=== PATIENT | female | born 1955 | race Caucasian/White ===

== ENCOUNTER → 2020-12-08 09:19 | Outpatient (BNVA) | payer OTHER, SELFPAY | PROVIDERS: PCP Family Medicine; Referring Provider Family Medicine; Visit Provider Physician Assistant | DX: K21.9 Gastro-esophageal reflux disease without esophagitis (principal); K63.5 Polyp of colon; R10.13 Epigastric pain | CPT/HCPCS: 99202 ==

== ENCOUNTER 2020-12-29 12:27 | Outpatient (REF) | payer OTHER, SELFPAY ==
--- NOTE | ~2020-12-29 | XR_ITS ---
EXAMINATION: XR LUMBOSACRAL SPINE WITH OBLIQUES CLINICAL INFORMATION: Pain in right leg COMPARISON: None TECHNIQUE: AP, both oblique, and lateral views of the lumbar spine. Lateral view of the lumbosacral junction. FINDINGS: No acute fracture or traumatic malalignment. Vertebral body heights maintained. S1 is partially lumbarized with rudimentary disc at S1 to. Minimal dextro convex lumbar curvature centered at L2. Endplate osteophytes present throughout the lumbar spine. Mild facet arthropathy throughout lumbar spine, most pronounced at L5-S1. Mild bilateral sacroiliac arthrosis. Paraspinal soft tissues unremarkable. XR/XR lumbar spine 4V min IMPRESSION: No acute findings. Lumbar spondylosis as described.
--- NOTE | ~2020-12-29 | XR_ITS ---
EXAMINATION: XR HIP, RIGHT CLINICAL INFORMATION: Pain COMPARISON: None TECHNIQUE: Two views of the right hip. FINDINGS: No acute fracture or dislocation. Small acetabular osteophytes. Mild hip joint space narrowing. Femoral head is spherical. Mild degenerative change of the right sacroiliac joint and symphysis pubis. Soft tissues unremarkable. XR/XR hip RT min 2V IMPRESSION: No acute findings. Mild right hip arthrosis as described.
== END 2020-12-29 12:28 | disposition home or self-care (01) ==
LOC: HO.XRAY 12:27
PROVIDERS: PCP Family Medicine; Visit Provider Family Medicine
DX: M79.604 Pain in right leg (principal)
CPT/HCPCS: 72110; 73502

== ENCOUNTER 2021-03-08 09:03 | Outpatient (REF) | payer OTHER, SELFPAY ==
--- NOTE | 2021-03-08 09:07 | EMG_ITS ---
This is a 65-year-old woman with a 6 month history of numbness in the right foot and some pain in the left foot. PHYSICAL EXAMINATION: On examination, she is alert and oriented with normal intellectual functions. Cranial nerves II through XII were normal. She has somewhat flat feet. Reflexes symmetrical. IMPRESSION: Rule out peripheral neuropathy. Nerve conduction EMG study: Mildly prolonged distal latencies in the tibial nerves, otherwise unremarkable study of lower extremities. Normal EMG of the right L4-S1 innervated muscles. MD LIDYA Samaniego/IVY / [id number]
== END 2021-03-08 09:04 | disposition home or self-care (01) ==
LOC: HO.NEURO 09:03
PROVIDERS: Visit Provider Family Medicine
DX: G62.9 Polyneuropathy, unspecified (principal)
CPT/HCPCS: 95885; 95912

== ENCOUNTER 2021-03-22 10:40 | Day surgery (SDC) | payer OTHER, SELFPAY ==
--- NOTE | 2021-03-21 09:46 | HO.ANESPROP2 ---
Documented by User: Ángela Carpenter NP 03/21/21 09:46 HPI - Anesthesia Eval Consult details Narrative: 65yo F for Upper Endoscopy and Colonoscopy FORMERLY [facility] Active Problems Active Problems: All Active Problems (Updated 03/03/21 @ 08:28 by Tyesha Fraga RN) Epigastric pain (Acute) Acid reflux (Acute) Colon polyps (Acute) Past Medical History Medical History (Updated 03/03/21 @ 08:28 by Tyesha Fraga RN) Acid reflux Colon polyps COVID-19 vaccine series completed Elevated cholesterol Hypothyroid Family History Family History Sister Breast cancer Mother Diabetes Sister Diabetes Surgical History Surgical History (Updated 03/03/21 @ 08:28 by Tyesha Fraga RN) History of esophagogastroduodenoscopy (EGD) Hx of colonoscopy Social History Social History (Updated 12/08/20 @ 09:57 by Jaky Calles PA-C) Household Members Other:: lives with son Alcohol intake: never Patient Tobacco Use Status: Never used Tobacco Use of substances other than those prescribed or required for medical reasons: No Have you been hit, kicked, punched, or otherwise hurt by someone within the past year? 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 Meds Allergies Allergy/AdvReac Type Severity Reaction Status Date / Time peanut Allergy Unknown Unknown Verified 03/03/21 08:26 shellfish derived Allergy Unknown Unknown Verified 03/03/21 08:26 Home Medications Medication Instructions Recorded Confirmed Last Taken Type amitriptyline 25 mg tablet 25 mg PO BEDTIME 12/08/20 03/03/21 Unknown History atorvastatin 40 mg tablet 40 mg PO DAILY 12/08/20 03/03/21 Unknown History famotidine 40 mg tablet 40 mg PO BEDTIME 12/08/20 03/03/21 Unknown History levothyroxine 112 mcg tablet 112 mcg PO DAILY 12/08/20 03/03/21 03/22/21 History sucralfate 1 gram tablet 1 g PO DAILY tab 12/08/20 12/08/20 Unknown History Exam Exam Date and Time: March 21, [id number] Assessment and Plan Assessment Anesthesia Assessment: Chart Reviewed Documented by User: Rosy Whitman MD 03/22/21 11:16 [facility]LY [facility] Past Medical History Medical History (Updated 03/03/21 @ 08:28 by Tyesha Fraga RN) Acid reflux Colon polyps COVID-19 vaccine series completed Elevated cholesterol Hypothyroid Family History Family History Sister Breast cancer Mother Diabetes Sister Diabetes Family history of problems with anesthesia: No Surgical History Surgical History (Updated 03/03/21 @ 08:28 by Tyesha Fraga RN) History of esophagogastroduodenoscopy (EGD) Hx of colonoscopy History of Problems with Anesthesia: No Social History Social History (Updated 12/08/20 @ 09:57 by Jaky Calles PA-C) Household Members Other:: lives with son Alcohol intake: never Patient Tobacco Use Status: Never used Tobacco Use of substances other than those prescribed or required for medical reasons: No Have you been hit, kicked, punched, or otherwise hurt by someone within the past year? 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 Meds Allergies Allergy/AdvReac Type Severity Reaction Status Date / Time peanut Allergy Unknown Unknown Verified 03/03/21 08:26 shellfish derived Allergy Unknown Unknown Verified 03/03/21 08:26 Home Medications Medication Instructions Recorded Confirmed Last Taken Type amitriptyline 25 mg tablet 25 mg PO BEDTIME 12/08/20 03/03/21 Unknown History atorvastatin 40 mg tablet 40 mg PO DAILY 12/08/20 03/03/21 Unknown History famotidine 40 mg tablet 40 mg PO BEDTIME 12/08/20 03/03/21 Unknown History levothyroxine 112 mcg tablet 112 mcg PO DAILY 12/08/20 03/03/21 03/22/21 History sucralfate 1 gram tablet 1 g PO DAILY tab 12/08/20 12/08/20 Unknown History Exam Airway Mallampati Class: II TM Dist: >3cm Neck ROM: Full Heart: rrr Lungs: cta Assessment and Plan Assessment Anesthesia Assessment: Anesthesia Plan Discussed and Chart Reviewed Final Anesthetic Review Family History of Problems with Anesthesia: No History of Problems with Anesthesia: No NPO: Yes ASA Class: II Final Preanesthetic Review: No Changes in Pt Med Stat, Meds/Allgs Chart Reviewed and Consent Obtained/Reviewed Patient Risk: Intermediate Procedure Risk: Intermediate Anesthetic Plan Anesthetic Plan: MAC: Disposition: Standard PACU
[2021-03-22 10:51] VITALS: BP 141/84; PULSE 83; RESP 8; TEMP 36.6; O2SAT 97; BMI 29.0
--- NOTE | 2021-03-22 11:08 | MHC.SHP ---
Pre-Procedural Eval Section A Date of Service: 03/22/21 Section B Chief Complaint: reflux,hx of polyps Relevant Family History (Specify if Yes): No Relevant Social History: None Present Medications: see Short Stay Collaborative assessment Medical History: Significant History (Acid reflux Colon polyps COVID-19 vaccine series completed Elevated cholesterol Hypothyroid) History of Previous Operations: Relevant previous surgery/procedure and date(s) (egd,colonoscopy) Allergies: Allergies Allergy/AdvReac Type Severity Reaction Status Date / Time peanut Allergy Unknown Unknown Verified 03/03/21 08:26 shellfish derived Allergy Unknown Unknown Verified 03/03/21 08:26 Review of Systems Sugical H&P ROS: Negative: Constitution, Cardiovascular, Respiratory, Neurological, Psychiatric, Hem-Onc, Allergic/Immunologic, Gastrointestinal, Genitourinary, Musculoskeletal, Integumentary, Endocrine and Eyes/Ears/Nose/Throat Exam Surgical H&P Exam: Normal: HEENT, Normal: Heart, Normal: Lungs, Normal: Extremities, Normal: Abdomen, Normal: Skin and Normal: Neurological Plan Diagnosis/Plan: Unchanged I have reviewed the history and physical and performed a pertinent physical examination on my patient. No changes have occurred unless specified.
[2021-03-22] MEDS: Lactated Ringers 1,000 ML 100 ML IVCONT (11:11)
--- NOTE | 2021-03-22 12:36 | PM.OP ---
Brief Operative Note Date of Service: 03/22/21 Pre-op diagnosis: GERd, screening Post-op diagnosis: same Procedure: see op note Surgeon: Sheron Cannon MD Anesthesia: MAC Was an Agency Development Manager used for this Procedure?: No Estimated blood loss (mL): 0 Condition: stable Disposition: PACU
--- NOTE | 2021-03-22 12:36 | W.PM.OPN ---
Operative Note Operative Note Date of Service: 03/22/21 Narrative: Operative Information Procedure Description: EGD, Colonoscopy FLEXIBLE TRANSORAL UPPER GASTROINTESTINAL ENDOSCOPY AND COLONOSCOPY PROCEDURE NOTE UPPER ENDOSCOPY Consent: Indications for the procedure and potential complications of bleeding, perforation, reaction to medications and missed diagnosis were discussed with the patient and informed consent was obtained. Instrument: Olympus GIF H 190 J mid size upper endoscope Monitoring: Vital signs and clinical assessment, continuous EKG monitoring, Pulse oximetry, Carbon Dioxide monitoring and blood pressure monitoring were done throughout the procedure. Procedure: The patient was placed in the left lateral decubitis position and pre-procedure medications were administered and a bite block was placed. The endoscope was inserted into the mouth and advanced under direct vision to the third part of duodenum. A careful inspection was made as the upper endoscope was withdrawn including a retroflexed examination of the proximal stomach; Findings and interventions are described below. Findings: Larynx:normal Esophagus: GE junction at 36 cm, diaphragm hiatus at 36 cm, bogginess and erythema at GEJ, bx taken Stomach: Patchy erythematous mucosa. Biopsies were obtained. Grade 2 flap valve on retroflexed examination of the cardia. Duodenum: Normal bulb and descending duodenum, bx taken Intervention: Biopsies as noted above COLONOSCOPY Instrument: Olympus variable stiffness pediatric scope 190L Colonoscopy Monitoring: Vital signs and clinical assessment, continuous EKG monitoring, Pulse oximetry, Carbon Dioxide monitoring and blood pressure monitoring were done throughout the procedure. Colon withdrawal time was 9 minutes. Procedure: The patient was placed in the left lateral decubitis position and pre-procedure medications were administered. After a digital rectal examination of the ano-rectum, the video colonoscope was inserted into the rectum and advanced through the colon to the cecum/TI. The colonoscope was slowly withdrawn in a retrograde panoramic fashion and the colon mucosa was carefully examined including a retroflexed view of the rectum. Findings and interventions are described below. Procedure Difficulty: easy Findings: Terminal Ileum-normal Cecum:normal Ascending Colon: normal, 10 mm lipoma noted Transverse Colon -normal Descending Colon:normal Sigmoid Colon: normal Rectum: Retroflexion with mdoerately large internal hemorrhoids, grade I, 8 mm sessile polyp removed with forceps Anorectum - normal Colon preparation: [place] Bowel Preparation Scale Right colon; 2 Transverse colon: 2 Left colon; 2 (0 = Unprepared colon segment with mucosa not seen due to solid stool that cannot be cleared. 1 = Portion of mucosa of the colon segment seen, but other areas of the colon segment not well seen due to staining, residual stool and/or opaque liquid. 2 = Minor amount of residual staining, small fragments of stool and/or opaque liquid, but mucosa of colon segment seen well. 3 = Entire mucosa of colon segment seen well with no residual staining, small fragments of stool or opaque liquid) Impression and Post Procedure Diagnosis: Endoscopy Findings: esophagitis gastritis Colonoscopy Findings: internal hemorrhoids polyp Plan: Await Pathology results Repeat Colonoscopy in 5 years if adenoma polyp, 10 yrs if hyperplastic or earlier if clinically indicated High fiber diet leaflet avoid straining at stool, epsom salts and sitz bath, anusol supps or cream consider changing PPI to another formulation Above findings were reviewed with the patient and relevant handouts were provided if indicated.
[2021-03-22 12:57] VITALS: BP 106/66; PULSE 84; RESP 16; TEMP 36.9; O2SAT 97
[2021-03-22 13:12] VITALS: BP 115/75; PULSE 75; RESP 18; TEMP 36.2; O2SAT 99
== END 2021-03-22 14:00 | disposition home or self-care (01) ==
PROVIDERS: PCP Family Medicine; Visit Provider Internal Medicine Gastroenterology
PROC: (CPT 45380; principal; 2021-03-22 12:10)
DX: Z12.11 Encounter for screening for malignant neoplasm of colon (principal); Z86.010 Personal history of colon polyps; K62.1 Rectal polyp; D17.5 Benign lipomatous neoplasm of intra-abdominal organs; K64.0 First degree hemorrhoids; K29.00 Acute gastritis without bleeding; K21.00 Gastro-esophageal reflux disease with esophagitis, without bleeding; Q39.8 Other congenital malformations of esophagus; K44.9 Diaphragmatic hernia without obstruction or gangrene; E78.00 Pure hypercholesterolemia, unspecified; Z79.899 Other long term (current) drug therapy
CPT/HCPCS: 45380; 43239; 88305; 88342

== ENCOUNTER 2021-04-05 07:18 | Outpatient (REF) | payer OTHER, SELFPAY ==
[2021-04-05 08:56] LABS: MANUAL DIFF FLAG NO
[2021-04-05 10:15] LABS: Basophils Percent Auto 0.6 % (0-2); Eosinophils Absolute Auto 0.1 X10*3/uL (0.0-0.4); Eosinophils Percent Auto 1.6 % (0-4); Hematocrit 46.6 % (37.0-47.0); Imm Gran Abs Auto 0.01 X10*3/uL (0.00-0.03); Imm Gran Pct Auto 0.1 % (0.0-0.4); Lymphocytes Absolute Auto 3.1 X10*3/uL (1.2-4.9); Lymphocytes Percent Auto 43.7 % (20-40); Mean Corpuscular HGB Conc 32.2 g/dl (31.0-35.0); Mean Corpuscular Hemoglobin 27.3 pg (27.0-33.0); Mean Corpuscular Volume 84.7 fL (80.0-98.0); Mean Platelet Volume 10.1 fL (9.4-12.3); Monocytes Absolute Auto 0.5 X10*3/uL (0.1-1.2); Monocytes Percent Auto 6.6 % (2-11); Neutrophils Absolute Auto 3.3 x10*3/uL (2.0-8.3); Neutrophils Percent Auto 47.4 % (45-73); Platelet Count 313 X10*3/uL (160-400); Red Cell Distribution Width 13.6 % (11.0-16.0)
[2021-04-05 10:28] LABS: Alanine Aminotransferase 30 U/L (0-31); Albumin Level 4.6 g/dL (3.5-5.0); Alkaline Phosphatase 99 U/L (39-117); Anion Gap 11 (12-20); Aspartate Amino Transferase 23 U/L (5-31); Bilirubin Total 0.5 mg/dL (0.0-1.0); Blood Urea Nitrogen 11 mg/dL (9-16); Carbon Dioxide 29 mmol/L (22-29); Chloride 104 mmol/L (96-108); Cholesterol 216 mg/dL; Estimated Glomerular Filt Rate > 60; Glucose Random 87 mg/dL (60-115); HDL Cholesterol 61 mg/dL; LDL Cholesterol Calculated 126 mg/dl; Potassium 4.3 mmol/L (3.3-5.1); Sodium 140 mmol/L (135-145); Total Protein 8.5 g/dL (6.5-8.0); Triglycerides 147 mg/dL
[2021-04-06 13:07] LABS: H Pylori Breath Test Negative (Negative)
[2021-04-07 11:51] LABS: Transglutaminase IgA <1.0 U/mL
[2021-04-11 12:16] LABS: Endomysial IgA Antibody Negative (Negative)
== END 2021-04-05 07:19 | disposition home or self-care (01) ==
LOC: HO.LAB 07:18
PROVIDERS: PCP Internal Medicine; Referring Provider Internal Medicine; Visit Provider Physician Assistant
DX: R10.13 Epigastric pain (principal); K21.9 Gastro-esophageal reflux disease without esophagitis; K20.90 Esophagitis, unspecified without bleeding; K63.5 Polyp of colon; R19.7 Diarrhea, unspecified; K76.0 Fatty (change of) liver, not elsewhere classified; Z79.899 Other long term (current) drug therapy
CPT/HCPCS: 36415; 80053; 80061; 83013; 85025; 86231; 86364; 99202

== ENCOUNTER → 2021-07-27 11:18 | Outpatient (BNVA) | payer OTHER, SELFPAY | PROVIDERS: PCP Internal Medicine; Referring Provider Internal Medicine; Visit Provider Physician Assistant | DX: K21.9 Gastro-esophageal reflux disease without esophagitis (principal); R77.9 Abnormality of plasma protein, unspecified; Z79.899 Other long term (current) drug therapy | CPT/HCPCS: 99212 ==

== ENCOUNTER 2024-09-15 14:30 | Outpatient (AMB) | payer MEDICARE, OTHER, SELFPAY ==
--- NOTE | 2024-09-15 15:02 | A.OFFVIS_ITS ---
Vital Signs 09/15/24 15:03 Height 5 ft 7 in Intake Visit Reasons: 6m Migraine Allergies peanut Allergy (Unknown, Verified 09/15/24 15:05) Unknown shellfish derived Allergy (Unknown, Verified 09/15/24 15:05) Unknown Medication List - Last Reconciled 09/15/24 by Dianne Robins CNP amitriptyline 25 mg PO BEDTIME atorvastatin 40 mg PO DAILY fluticasone propionate 50 mcg/actuation 2 sprays intranasal DAILY levothyroxine 112 mcg PO DAILY omeprazole 40 mg PO DAILY sumatriptan succinate take 1 tab at onset of headache; if no relief may repeat 1 tab after at least 2 hrs; max = 4 tabs/24 hr PO HPI Comments Details: 68-year-old woman with migraine. She was doing okay. Headaches were controlled with amitriptyline. She had few occasional headaches that she did not need to use sumatriptan for. Sleep was okay. Mood was okay. 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 Review of Systems Const Denies chills, Denies daytime sleepiness, Denies difficulty sleeping, Denies fatigue, Denies fever(s), Denies frequent falls, Reports headache(s), Denies increased appetite, Denies poor appetite, Denies snoring, Denies weakness, Denies weight gain and Denies weight loss Eyes Denies loss of vision ENT Denies vertigo, Denies dizziness and Reports headache(s) Card Denies chest pain at rest, Denies chest pain with activity, Denies syncope, Denies leg edema and Denies palpitations Resp Denies snoring GI Denies constipation, Denies heartburn, Denies diarrhea and Denies nausea Denies urinary frequency, Denies urinary incontinence and Denies urinary urgency Musc Denies abnormal gait, Denies numbness and Denies tingling Skin/Breast Denies dry skin and Denies rash Neuro Denies abnormal gait, Denies vertigo, Denies dizziness, Denies syncope, Denies frequent falls, Reports headache(s), Denies lack of coordination, Denies loss of vision, Denies memory loss, Denies numbness, Denies restless legs, Denies seizure-like activity, Denies tingling, Denies paresthesias, Denies tremor(s) and Denies weakness Psych Denies anxiety, Denies depression, Denies auditory hallucinations, Denies memory loss, Denies visual hallucinations and Denies suicidal ideation Endo Denies fatigue and Denies palpitations Physical Exam Const Other: General Appearance:? normal, in no acute distress. Skin:? no rashes, no significant birthmarks. Heart:? S1, S2 normal, no murmurs. Lungs:? clear anteriorly and posteriorly. Extremities:? no edema. Psych:? alert, oriented, cognitive function intact, cooperative with exam. Neuro Other: Mental Status:?Normal attention, orientation, memory and affect.? Cranial Nerves:?Pupils are equal, round and reactive to light. External occular muscles are intact. Visual white are full. Face is symmetrical. Facial sensations are normal. Tongue is midline. Palate elevates symmetrically. Shoulder shrugging is normal. Hearing to bedside conversation is normal. Motor Examination:?Normal muscle tone, bulk and strength,?Deep tendon reflexes are 2+,?Plantars are flexor.? Sensory Exam:?....? Coordination:?No ataxia,?no titubation.? Gait Exam: Within normal limits. Cerebellar Signs:?[id number] and [id number] is normal.? Extrapyramidal System:?No tremor, rigidity with normal facial expressions.? Pronator Drift:?Not present.? Involuntary Movements:?No tremors seen.? Speech:?Normal.? Assessment & Plan Assessment & Plan (1) Migraine: Code(s): G43.909 - Migraine, unspecified, not intractable, without status migrainosus Category: Medical Qualifiers: Migraine type: unspecified Status migrainosus presence: without status migrainosus Intractability: not intractable Qualified Code(s): G43.909 - Migraine, unspecified, not intractable, without status migrainosus Plan: Continue amitriptyline 25mg 1 tablet at bedtime Continue sumatriptan 50mg 1 tablet as needed for migraine Medications: New amitriptyline 25 mg PO BEDTIME 90 tabs 1RF 90 days sumatriptan succinate take 1 tab at onset of headache; if no relief may repeat 1 tab after at least 2 hrs; PO 10 tabs 5RF 30 days Discontinued sumatriptan succinate Discontinued Reason: Order take 1 tab at onset of headache; if no relief may repeat 1 tab after at least 2 hrs; max = 4 tabs/24 hr PO Coding Level of Care Code Est Pt Level 3 (15369) Diagnoses Migraine without status migrainosus, not intractable, unspecified migraine type G43.909 Migraine type: unspecified Status migrainosus presence: without status migrainosus Intractability: not intractable
--- OUTSIDE RECORDS SUMMARY | 2024-09-15 15:45 | XMS_ITS | Encounter Summary ---
Author Organization [employer] Address [address] [place] [address] Care Team Providers Care Branch Sales And Service Representative Name Role Phone Harrison Portillo MD Primary Care Prov ider Encounter Details Date Type Department Care Team (Latest Contact Info) Description 06/16/2018 Abstract [facility] CONVERSIONS Dental, Provider, DDS Social History Tobacco Use Types Packs/Day Years Used Date Smoking Tobacco: Never Assessed Comments Unknown Sex and Gender Information Value Date Recorded Sex Assigned at Female 12/25/2021 10:29 AM EDT Legal Sex Female 10:29 AM EDT Gender Identity Female 12/25/2021 10:29 AM EDT Sexual Orientation Choose not to disclose 2021 10:29 AM EDT documented as of this encounter Plan of Treatment Not on file documented as of this encounter Visit Diagnoses Not on filedocumented in this encounter Care Teams Branch Sales And Service Representative Relationship Specialty Start Date End Date Harrison Portillo MD [address] [place] [address] PCP - General Internal Medicine 07/17/19 12/19/23 documented as of this encounter
--- OUTSIDE RECORDS SUMMARY | 2024-09-15 15:45 | XMS_ITS | Clinical Summary ---
Author Organization [address] [place] [address] [place] [phone] Phone Care Team Providers Care Cellophane Tester Name Role Phone Meryl Baeza MD Primary Care Provider Allergies Active Allergy Reactions Criticality Noted Date Comments Other 07/08/2023 seasonal Peanut High 01/02/2010 Other Reaction(s): Numbness, tingling or swelling of the lips, tongue or mouth Dryness in throat Shellfish Containing Products High 01/02/2010 Other Reaction(s): Hives/Urticaria Sulfa (Sulfonamide Antibiotics) Medium 02/26/2021 Other Reaction(s): Hives/Urticaria Medications amitriptyline (ELAVIL) 25 mg tablet Take 1 Tablet by mouth at bedtime. 3 Active acetaminophen (TYLENOL) 500 mg tablet Take 1 tablet (500 mg total) by mouth every 6 (six) hours if needed. 2 Active fluticasone propionate (FLONASE) 50 mcg/actuation nasal spray SPRAY 2 SPRAYS BY NASAL ROUTE DAILY 48 mL 1 5 Active omeprazole (PriLOSEC) [address] capsule TAKE 1 CAPSULE BY MOUTH EVERY DAY 90 capsule 1 5 Active cholecalciferol (VITAMIN D-3) 25 mcg (1,000 unit) tablet Take 1 tablet (1,000 Units total) by mouth 1 (one) time each day. 90 tablet 3 5 Active loratadine (CLARITIN) 10 mg tablet Take 1 tablet (10 mg total) by mouth 1 (one) time each day. 90 tablet 3 5 Active levothyroxine (SYNTHROID, LEVOTHROID) 112 mcg tablet Take 1 tablet (112 mcg total) by mouth 1 (one) time each day. 90 each 5 12/03/19 25 Active levothyroxine (SYNTHROID, LEVOTHROID) 112 mcg tablet Take 1 tablet (112 mcg total) by mouth 1 (one) time each day. 90 each 5 09/04/19 Discontinu ed(Reorder ) Active Problems Problem Noted Date Diagnosed Date Gastroesophageal reflux disease without esophagi tis 10/09/2023 Hypothyroidism 01/25/2022 Assessment & Plan (05/07/2024 8:22 AM EDT): Orders: CBC and differential; Future Thyroid stimulating hormone with reflex to free t4 and free t3; Future Colon polyp 03/22/2021 Overview (12/13/2023): [place] [facility] Hyperlipidemia 08/04/2018 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 Seasonal allergies 08/04/2018 Varicose veins with pain 07/07/2018 Encounters Date Type Department Care Team Description 09/02/2024 10:30 AM EDT Office Visit Adult Medicine [address] [phone] Ml Diaz PA Hypothyroidism, unspecified type (Primary Dx); Gastroesophageal reflux disease without esophagitis; Varicose veins with pain 08/03/2024 Telephone Vascular Surgery [facility] [address] [facility] [address] [place] [address] Ana Maria Simmons MA 07/29/2024 10:00 AM EDT Office Visit Orthopedic Surgery [facility] [address] [facility] [address] [place] [address] Renny Cordon, ZE Chronic pain of left ankle (Primary Dx); Venous insufficiency; Sinus tarsi syndrome of left ankle; Disorder of ligament of ankle, left 07/29/2024 Telephone Adult Medicine [address] [place] [address] Meryl Baeza MD Referral (Neurology Insurance Referral) from Last 3 Months Immunizations Name Administration Dates Next Due Influenza Quadrivalent, 0.5m l, preservative free (Fluarix; FluLaval; Fluzone) ages 6mo and older (Afluria) 3yo and older 12/17/2023 Influenza trivalent, 0.5mL ( Fluad) 65yo and older 12/05/2022 Influenza trivalent, 0.5mL, preservative free (Fluarix; FluLaval; Fluzone) ages 6mo and older (Afluria) 3 years and older 12/29/2020,11/26/2019,11/27/2018,2017,12/04/2016,11/15/2015 Influenza, Unspecified 12/22/2021 Pneumococcal conjugate 20 va lent (Prevnar 20, PCV 20) 2mo and older 06/01/2022 Tdap Tetanus diptheria acell ular pertussis (Boostrix; Adacel) 7yo and older 02/03/2016 Zoster Live 12/04/2016 Zoster recombinant (Shingrix ) 19yo and older 02/03/2020,12/03/2019 Surgical History Surgery Date Site/Laterality Comments BREAST REDUCTION 05/2010 PROCEDURE: NE BREAST REDUCTION OTHER SURGICAL HISTORY 12/27/2016 Left PROCEDURE: NE STAB PHLEBT VARICOSE VEINS 1 XTR > 20 INCS SECTION PROCEDURE: HISTORICAL DELIVERY COLONOSCOPY 2021 PROCEDURE: HISTORICAL COLONOSCOPY; COMMENT: polyps FINE NEEDLE ASPIRATION 02/2021 Left PROCEDURE: FINE NDLE ASPRTN W/IMAGING GUIDANCE; COMMENT: neg Medical History Medical History Date Comments 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 DX:Left knee DJD Varicose veins with pain 07/07/2018 DX:Vari cose veins with pain Hyperlipidemia 08/04/2018 DX:Hyperlipidemi a Seasonal allergies 08/04/2018 DX:Seasonal a llergies GERD without esophagitis DX:GERD without esophagitis History of gastric ulcer DX:Hist ory of gastric ulcer Hypothyroid DX:Hypothyroid Hypothyroidism 01/25/2022 DX:Hypothyroidis m Family History Medical History Relation Name Comments Drug abuse Brother 1 Throat cancer Father + Etoh and smo ker Arthritis Mother Breast cancer Sister 1 x 10 Other: Childbirth Complications Sister 2 Other: Spinda Bifida Son 1 Jeremias No Known Problems Son 2 Colon cancer Neg Hx Diabetes Neg Hx Heart attack Neg Hx Ovarian cancer Neg Hx Stroke Neg Hx Relation Name Status Comments Brother 1 Brother 2 x 3 Alive Father Mother Alive Sister 1 x 10 Alive Sister 2 Son 1 Jeremias Alive Son 2 Alive Social History Tobacco Use Types Packs/Day Years Used Date Smoking Tobacco: Never Smokeless Tobacco: Never Tobacco Cessation:Counseling Given: Not Answered Alcohol Use Standard Drinks/Week Comments No 0 (1 standard drink = 0.6 oz pur e alcohol) Housing Instability Answer Date Recorde d Are you worried that in the next 2 months you may not have stable housing? No 05/07/2024 Food Access & Nutrition Answer Date Rec orded Do you have access to a vari ety of food including fruits and vegetables? Yes 05/07/2024 Health Literacy Answer Date Recorded How often do you need to hav e someone help you when you read instructions, pamphlets, or other written material from your doctor or pharmacy? Never 05/07/2024 Caregiver: How often do you need to have someone help you when you read instructions, pamphlets, or other written material from your doctor or pharmacy? Not on file 05/07/2024 Financial Risk Answer Date Recorded How hard is it for you to pa y for the very basics like food, housing, medical care, and air conditioning / heating? Not very hard 05/07/2024 Transportation Answer Date Recorded Has the lack of transportati on kept you from meetings, work, or from getting things needed for daily living? No Has the lack of transportati on kept you from medical appointments or from getting medications? No 05/07/2024 Social Isolation Answer Date Recorded How often do you feel lonely or isolated from th ose around you? Never 05/07/2024 Food Risk Answer Date Recorded Within the past 12 months we worried whether our food would run out before we got money to buy more. Never true 05/07/2024 Within the past 12 months th e food we bought just didn't last and we didn't have money to get more. Never true 05/07/2024 Dependent Care Answer Date Recorded Do you need help finding or paying for care for your loved ones. For example, child care centre director or elderly care for an older adult? Patient declined 05/07/2024 Education Answer Date Recorded Do you think completing more education or training, like finishing a GED, going to college, or learning a trade, would be helpful for you? Patient declined 05/07/2024 Employment and Income Answer Date Recor ded During the last four weeks, have you been actively looking for work? Patient declined 05/07/2024 Living Situation Answer Date Recorded What is your living situation? 0 05/07/2024 Comments No Sex and Gender Information Value Date Recorded Sex Assigned at Not on file Legal Sex Female 6:07 AM EST Gender Identity Not on file Sexual Orientation Not on file Obstetrics History Para Term AB IAB SAB Ectopic Multiple Livin g Live Births 2 2 2 2 Date Outcome GA Total Labor Labor/2nd/3rd Weight Sex Type Anes PTL Nelida A1 A5 Name Clin Term Term Last Filed Vital Signs Vital Sign Reading Time Taken Comments Blood Pressure 102/72 09/02/2024 10:14 AM EDT Pulse 72 09/02/2024 10:14 AM EDT Temperature 36.3 C (97.4 F) 09/02/2024 10:14 AM EDT Respiratory Rate 12 09/02/2024 10:14 AM EDT Oxygen Saturation - - Inhaled Oxygen Concentration - - Weight 83.3 kg (183 lb 9.6 oz) 09/02/2024 10:14 AM EDT Height 170.2 cm (5' 7 ) 09/02/2024 10:14 AM EDT Body Mass Index 28.76 09/02/2024 10:14 AM EDT Plan of Treatment Upcoming Encounters Date Type Department Care Team (Late st Contact Info) Description 10/29/2024 10:00 AM EDT Office Visit Orthopedic Surgery - [place] [address] [phone] Renny Cordon DPM [address] [address] 11/26/2024 11:30 AM EDT Procedure visit Vascular Surgery - [place] 300 [facility] [address] [place] [phone] Davey Perez MD 300 [facility] [address] [place] [address] 12/14/2024 1:00 PM EDT Office Visit Vascular Surgery - [place] 300 [facility] [address] [place] [address] Bernie Dukes PA 300 [facility] [address] [place] [address] 01/05/2025 8:45 AM EST Office Visit Adult Medicine [facility] [address] [place] [address] Meryl Baeza MD [address] [place] [address] Health Maintenance Due Date Last Done Comments Falls Risk Assessment 02/03/2022 Medicare Annual Wellness Visit 02/03/2022 COVID-19 Vaccine ( season) 2024 12/17/2023, 12/22/2021, 02/28/2021, Additional history exists Influenza Vaccine (#1) 2024 , 12/05/2022, 12/22/2021, Additional history exists Breast Cancer Screening 04/03/2025 04/03/19, 03/26/2023, 03/09/2022, Additional history exists Social Influencers of Health Screening 05/07/2025 05/07/2024 DTaP,Tdap,and Td Vaccines (2 - Td or Tdap) 02/02/2026 02/03/2016 Colorectal Cancer Screening: Colonoscopy 03/22/2026 03/22/2021, 03/22/2021 Osteoporosis Screening (Bone Density Screening) 05/13/2026 05/13/2024, 06/08/2022 Cholesterol Screening (Lipid Panel) 05/07/2029 05/07/2024, 07/03/2023, 07/03/2023 RSV Immunization Adult Patients (1 - 1-dose 75+ series) 10/13/2031 Hepatitis C Screening Completed 10/31/2007 Zoster Vaccines Completed 02/03/2020, 09/2019, 12/04/2016 Pneumococcal Vaccine: 50+ Years Completed 06/01/2022 Depression Screening Completed 05/07/2024, 04/08/19 24 HIB Vaccines Aged Out No longer eligi ble based on patient's age to complete this topic HPV Vaccines Aged Out No longer eligi ble based on patient's age to complete this topic Hepatitis A Vaccines Aged Out No long er eligible based on patient's age to complete this topic Hepatitis B Vaccines Aged Out No long er eligible based on patient's age to complete this topic IPV Vaccines Aged Out No longer eligi ble based on patient's age to complete this topic MMR Vaccines Aged Out No longer eligi ble based on patient's age to complete this topic Meningococcal ACWY Vaccine Aged Out N o longer eligible based on patient's age to complete this topic Meningococcal B Vaccine Aged Out No l onger eligible based on patient's age to complete this topic RSV Immunization Patients Under 20 months Aged Out No longer eligible based on patient's age to complete this topic Varicella Vaccines Aged Out No longer eligible based on patient's age to complete this topic Procedures Procedure Name Priority Date/Time Associated Diagnosis Comments TRIIODOTHYRONINE FREE Routine 09/02/2024 10:59 AM EDT Acquired hypothyroidism FREE THYROXINE WITH REFLEX TO FREE TRIIODOTHYRONINE Routine 09/02/2024 10:59 AM EDT Acquired hypothyroidism THYROID STIMULATING HORMONE WITH REFLEX TO FREE T4 AND FREE T3 Routine 09/02/2024 10:59 AM EDT Acquired hypothyroidism BD BONE DENSITY DXA AXIAL SKELETON Routine 05/13/2024 1:45 PM EDT Other specified disorders of bone density and structure, other site LIPID PANEL WITH REFLEX TO DIRECT LDL Routine 05/07/2024 8:29 AM EDT PE (physical exam), annual MG MAMMO DIGITAL SCREENING W ABDI BILAT Routine 04/03/2024 9:57 AM EST Encounter for screening mammogram for breast cancer DEPRESSION SCREENING Routine 04/08/2023 COLONOSCOPY Routine 03/22/2021 HEPATITIS C SCREENING Routine 10/31/2007 from Last 3 Months or Most Recently Relevant to Health Maintenance Results * (ABNORMAL) Thyroid stimulating hormone with reflex to free t4 and free t3 (09/02/2024 10:59 AM EDT) TSH 0.26(L) 0.40 - 4.00 mcIU/mL LAB CHEMISTRY METHOD 09/02/2024 3:[address] [facility] Blood Venous blood specimen / Unknown Venipuncture / Unknown 09/02/2024 10:59 AM EDT 09/02/2024 10:59 AM EDT us Meryl Baeza MD LAB BLOOD ORDERABLES Final Resul t Performing Organization Address City/[facility]/ZIP Co de Phone Number [facility] [address] [place] [address], [place] [phone] * Free thyroxine with reflex to free triiodothyronine (09/02/2024 10:59 AM EDT) Free T4 1.69 0.70 - 1.80 ng/dL LAB CHEMISTRY METHOD 09/02/2024 7:[address] [facility] Blood Venous blood specimen / Unknown Venipuncture / Unknown 09/02/2024 10:59 AM EDT 09/02/2024 10:59 AM EDT us Meryl Baeza MD LAB BLOOD ORDERABLES Final Resul t [facility] [address] [place] [address], [place] [phone] * Triiodothyronine free (09/02/2024 10:59 AM EDT) T3, Free 328 230 - 420 pcg/dL LAB CHEMISTRY METHOD 09/02/2024 9:[address] [facility] Blood Venous blood specimen / Unknown Venipuncture / Unknown 09/02/2024 10:59 AM EDT 09/02/2024 10:59 AM EDT us Meryl Baeza MD LAB BLOOD ORDERABLES Final Resul t [facility] [address] [place] [address], * BD Bone Density DXA Axial Skeleton (05/13/2024 1:45 PM EDT) Anatomical Region Laterality Modality Wrist, Hip, L-spine Bone Densito metry 05/13/2024 7:59 PM EDT Impressions 05/13/2024 8:01 PM EDT Osteopenia. The NOF guidelines recommend that FDA approved medical therapies be considered in postmenopausal women and men age >50 years with a: i. Hip or vertebral (clinical or morphometric) fracture ii. T score of < -2.5 at the spine or hip iii. 10 year fracture probability by FRAX of >3% for hip fracture, or >20% for major osteoporotic fracture PLEASE NOTE: W.H.O. classification is based on lowest measured density at the spine, femoral neck, or total hip.This classification has prognostic significance when applied to post menopausal women and older men. 1) The World Health Organization defines low BMD as follows: T-score Normal at or > -1 Osteopenia < -1 and > -2.5 Osteoporosis at or < -2.5 without fractures Established osteoporosis < -2.5 with fractures -------- FINAL REPORT -------- Dictated By: Bernabe Javier Dictated Date: 05/13/2024 19:59 ET Assigned Physician: Bernabe Javier Reviewed and Electronically Signed By: Bernabe Javier Signed Date: 05/13/2024 20:01 ET Workstation ID: [id number] Transcribed By: Self Edit Transcribed Date: 05/13/2024 19:59 ET Narrative 05/13/2024 8:01 PM EDT Clinical history: Screening for osteoporisis Scans of the lumbar spine and hips were performed on a [employer] fan beam bone densitometer. Bone mineral density measurements and associated T and Z scores respectively are as follows: Lumbar Spine: L1-L4 BMD: 0.832 g/cm2 T-Score: -2.0 Z-Score: 0 Compared with the prior study dated 06/08/2022, the BMD reading has decreased which is statistically significant Left Proximal Femur: Neck BMD: 0.637 g/cm2 T-Score: -1.9 Z-Score: -0.3 Total BMD: 0.787 g/cm2 T-Score: -1.3 Z-Score: 0 Compared with the prior study the mean BMD reading in the total left hip has increased which is not statistically significant Compared with standards for the young adult, lowest measured bone density places the patient in the W.H.O. osteopenic range. FRAX 10 year probability of major osteoporotic fracture: 5.7% FRAX 10 year probability of hip fracture: 0.8% Population: [place] () Procedure Note Bernabe Javier MD - 05/13/2024 Clinical history: Screening for osteoporisis Scans of the lumbar spine and hips were performed on a AetherPal/lensgenigyfan beam bone densitometer. Bone mineral density measurements and associated T and Z scoresrespectively are as follows: Lumbar Spine: L1-L4 BMD: 0.832 g/cm2 T-Score: -2.0 Z-Score: 0 Compared with the prior study dated 06/08/2022, the BMD reading hasdecreased which is statistically significant Left Proximal Femur: Neck BMD: 0.637 g/cm2 T-Score: -1.9 Z-Score: -0.3 Total BMD: 0.787 g/cm2 T-Score: -1.3 Z-Score: 0 Compared with the prior study the mean BMD reading in the total left hiphas increased which is not statistically significant Compared with standards for the young adult, lowest measured bone densityplaces the patient in the W.H.O. osteopenic range. FRAX 10 year probability of major osteoporotic fracture: 5.7% FRAX 10 year probability of hip fracture: 0.8% Population: [place] () IMPRESSION: Osteopenia. The NOF guidelines recommend that FDA approved medical therapies beconsidered in postmenopausal women and men age >50 years with a: i. Hip or vertebral (clinical or morphometric) fracture ii. T score of < -2.5 at the spine or hip iii. 10 year fracture probability by FRAX of >3% for hip fracture, or >20%for major osteoporotic fracture PLEASE NOTE: W.H.O. classification is based on lowest measured density at the spine,femoral neck, or total hip.This classification has prognostic significancewhen applied to post menopausal women and older men. 1) The World Health Organization defines low BMD as follows: T-score Normal at or > -1 Osteopenia < -1 and > -2.5 Osteoporosis at or < -2.5 withoutfractures Established osteoporosis < -2.5 with fractures -------- FINAL REPORT -------- Dictated By: Bernabe Javier Dictated Date: 05/13/2024 19:59 ET Assigned Physician: Bernabe Javier Reviewed and Electronically Signed By: Bernabe Javier Signed Date: 05/13/2024 20:01 ET Workstation ID: [id number] Transcribed By: Self Edit Transcribed Date: 05/13/2024 19:59 ET Meryl Baeza MD [facility] DXA PROCEDURES Final Result * (ABNORMAL) Lipid panel with reflex to direct LDL (05/07/2024 8:29 AM EDT) Cholesterol 243(H) 0 - 200 mg/dL LAB CHEMISTRY METHOD 05/07/2024 10:[address] [facility] Triglycerides 91 0 - 150 mg/dL LAB CHEMISTRY METHOD 05/07/2024 10:[address] [facility] HDL 75 >=40 mg/dL LAB CHEMISTRY METHOD 05/07/2024 10:[address] [facility] LDL Calculated 150(H) 0 - 100 mg/dL LAB CHEMISTRY METHOD 05/07/2024 10:43 AM [facility] VLDL Cholesterol Sam 18.2 mg/dL LAB CHEMISTRY METHOD 05/07/2024 10:[address] [facility] Non HDL Chol. (LDL+VLDL) 168(H) <145 mg/dL LAB CHEMISTRY METHOD 05/07/2024 10:[address] [facility] Chol/HDL Ratio 3.2 0.0 - 4.4 LAB CHEMISTRY METHOD 05/07/2024 10:[address] [facility] Blood Venous blood specimen / Unknown Venipuncture / Unknown 05/07/2024 8:29 AM EDT 05/07/2024 8:29 AM EDT us Meryl Baeza MD LAB BLOOD ORDERABLES Final Resul t [facility] [address] [place] [address], [place] [phone] * MG Mammo Digital Screening w Abdi bilat (04/03/2024 9:57 AM EST) Anatomical Region Laterality Modality Breast Bilateral Mammography 04/03/2024 3:26 PM EST Impressions 04/03/2024 3:30 PM EST No mammographic evidence of malignancy. BI-RADS CATEGORY: 2 - BENIGN RECOMMENDATION: Screening bilateral mammogram is recommended in 1 year. Mammo Location: [facility], [address] [place] [address], [id number], . -------- FINAL REPORT -------- Dictated By: Addis Medeiros Dictated Date: 04/03/2024 15:26 ET Assigned Physician: Addis Medeiros Reviewed and Electronically Signed By: Addis Medeiros Signed Date: 04/03/2024 15:30 ET Workstation ID: [id number] Transcribed By: Self Edit Transcribed Date: 04/03/2024 15:26 ET Narrative 04/03/2024 3:30 PM EST Bilateral screening mammogram. CLINICAL: 68 years old, Female, routine annual exam. COMPARISON: Prior mammograms, latest from 03/26/2023. TECHNIQUE: Bilateral MLO and CC views were obtained digitally with 3-D mammogram (digital breast tomosynthesis). Computer-aided detection was utilized in evaluation of this exam (CAD). FINDINGS: There is no evidence of suspicious mass or architectural distortion. No worrisome calcifications are evident. There has been no significant change from prior exam(s). BREAST DENSITY: C - The breasts are heterogeneously dense which may obscure small masses. Procedure Note Addis Medeiros MD - 04/03/2024 Bilateral screening mammogram. CLINICAL: 68 years old, Female, routine annual exam. COMPARISON: Prior mammograms, latest from 03/26/2023. TECHNIQUE: Bilateral MLO and CC views were obtained digitally with 3-Dmammogram (digital breast tomosynthesis). Computer-aided detection wasutilized in evaluation of this exam (CAD). FINDINGS: There is no evidence of suspicious mass or architectural distortion. Noworrisome calcifications are evident. There has been no significantchange from prior exam(s). BREAST DENSITY: C - The breasts are heterogeneously dense which mayobscure small masses. IMPRESSION: No mammographic evidence of malignancy. BI-RADS CATEGORY: 2 - BENIGN RECOMMENDATION: Screening bilateral mammogram is recommended in 1 year. Mammo Location: [facility], [address] [place] [address], [phone], . -------- FINAL REPORT -------- Dictated By: Addis Medeiros Dictated Date: 04/03/2024 15:26 ET Assigned Physician: Addis Medeiros Reviewed and Electronically Signed By: Addis Medeiros Signed Date: 04/03/2024 15:30 ET Workstation ID: [id number] Transcribed By: Self Edit Transcribed Date: 04/03/2024 15:26 ET us Meryl Baeza MD IMG BI PROCEDURES Final Result * Depression Screening (04/08/2023) Depression Screening abstracted Historical Provider HEALTH MAINTENANCE Final Result * Colonoscopy (03/22/2021) Pathologist [facility] Colonoscopy no interpretation , abstracted Anatomical Region Laterality Modality Other us Historical Provider HEALTH MAINTENANCE Final Result * Hepatitis C Screening (10/31/2007) Pathologist [facility] Hepatitis C Screening abstracted us Historical Provider HEALTH MAINTENANCE Final Result from Last 3 Months or Most Recently Relevant to Health Maintenance Insurance [employer] Advance Directives Documents on File Type Date Recorded Patient 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 Cover Installer Expl anation Advance Directives and Living Will 05/08/2024 9:06 AM healthcare proxy03/21/2021 Health Care Decision (hx) 11/23/2014 ADVANCE DIRECTIVE Health Care Decision (hx) 11/23/2014 ADVANCE DIRECTIVE Health Care Decision (hx) 11/23/2014 ADVANCE DIRECTIVE Health Care Decision (hx) 11/23/2014 ADVANCE DIRECTIVE Health Care Decision (hx) 11/23/2014 ADVANCE DIRECTIVE Health Care Decision (hx) 11/23/2014 ADVANCE DIRECTIVE Health Care Decision (hx) 11/23/2014 ADVANCE DIRECTIVE Health Care Decision (hx) 11/23/2014 ADVANCE DIRECTIVE Health Care Decision (hx) 11/23/2014 ADVANCE DIRECTIVE Health Care Decision (hx) 11/23/2014 ADVANCE DIRECTIVE Health Care Decision (hx) 11/23/2014 ADVANCE DIRECTIVE Health Care Decision (hx) 11/23/2014 ADVANCE DIRECTIVE Health Care Decision (hx) 11/23/2014 ADVANCE DIRECTIVE Care Teams Cellophane Tester Relationship Specialty Start Date End Date Meryl Bazea MD [address] [place] [id number] PCP - General Internal Medicine 11/01/21
== END 2024-09-15 15:10 | disposition home or self-care (01) ==
LOC: HO.HSM 14:31
PROVIDERS: PCP Internal Medicine; Visit Provider Registered Nurse
DX: G43.909 Migraine, unspecified, not intractable, without status migrainosus (principal)
CPT/HCPCS: 99213

== ENCOUNTER → 2024-09-15 14:30 | Outpatient (BNVA) | payer MEDICARE, SELFPAY | PROVIDERS: PCP Internal Medicine; Visit Provider Registered Nurse | DX: G43.909 Migraine, unspecified, not intractable, without status migrainosus (principal) | CPT/HCPCS: 99212 ==

== ENCOUNTER 2024-11-04 13:50 | Outpatient (REF) | payer MEDICARE, SELFPAY ==
--- NOTE | ~2024-11-04 | US_ITS ---
EXAMINATION: US TRIPLEX LOWER EXTREMITY, RIGHT CLINICAL INFORMATION: Right leg procedure. COMPARISON: None available. TECHNIQUE: Color-flow triplex imaging with spectral analysis and compression Doppler were performed on the right lower extremity. FINDINGS: Respiratory variation, normal compression and augmented flow are demonstrated in the interrogated right common femoral vein, superficial femoral vein, profunda femoral vein, popliteal vein and midcalf peroneal and posterior tibial venous segments. There is no Islas's cyst. Status post procedure varices in the mid thigh. No flow on color Doppler interrogation. US/US venous duplex LE RT IMPRESSION: No acute deep venous thrombosis interrogated veins, right lower extremity. Negative for DVT. Electronically signed by: Stuart Sargent MD 11/04/2024 03:15 PM EDT
--- OUTSIDE RECORDS SUMMARY | 2024-11-04 16:55 | XMS_ITS | Encounter Summary ---
Author Organization [employer] Address [address] [facility] [address] [place] [address] Care Team Providers Care Warehouse Pricing And Inventory Clerk Name Role Phone Harrison Portillo MD Primary Care Prov ider Encounter Details Date Type Department Care Team (Latest Contact Info) Description 06/16/[address] [facility] CONVERSIONS Dental, Provider, DDS Social History Tobacco [...] on filedocumented in this encounter Care Teams Warehouse Pricing And Inventory Clerk Relationship Specialty Start Date End Date Harrison Portillo MD [address] [place] [address] PCP - General Internal Medicine 07/17/19 12/19/23 documented as of this encounter
--- OUTSIDE RECORDS SUMMARY | 2024-11-04 16:55 | XMS_ITS | Clinical Summary ---
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 Role Phone Unavailable Primary Care Provider Unavailabl e Active Problems Problem Noted Date Diagnosed Date Gastroesophageal reflux disease without esophagi tis 10/09/2023 Hyperlipidemia 10/09/2023 Hypothyroidism 10/09/2023 Osteoarthritis of knee 10/09/2023 Osteoarthritis of multiple joints 10/09/2023 Seasonal allergies 10/09/2023 Immunizations Immunization Administration Dates Next Due Influenza injectable quadriv alent IIV4 with preservative 11/08/2017 Influenza injectable quadriv alent preservative free 12/29/2020,11/26/2019,11/27/2018,2016,11/15/2015 Pfizer Covid-19 Vaccine 12+ 02/28/2021,,05/24/2020 Tdap 02/03/2016 Zoster, Recombinant 02/03/2020,12/03/2019 Zoster, live 12/04/2016 Social History Tobacco Use Types Packs/Day Years Used Date Smoking Tobacco: Never Assessed Comments Unknown Sex and Gender Information Value Date Recorded Sex Assigned at Female 12/25/2021 10:29 AM EDT Legal Sex Female 10:29 AM EDT Gender Identity Female 12/25/2021 10:29 AM EDT Sexual Orientation Choose not to disclose 2021 10:29 AM EDT Last Filed Vital Signs Vital Sign Reading Time Taken Comments Blood Pressure 124/82 12/29/2020 12:11 AM EDT Pulse 74 12/29/2020 12:11 AM EDT Temperature - - Respiratory Rate - - Oxygen Saturation - - Inhaled Oxygen Concentration - - Weight 84.4 kg (186 lb) 12/29/2020 12:11 AM EDT Height 165.1 cm (5' 5 ) 12/29/2020 12:11 AM EDT Body Mass Index 30.95 12/29/2020 12:11 AM EDT Plan of Treatment Health Maintenance Due Date Last Done Comments CT Colonography 1956 Colonoscopy 1956 Colorectal Cancer Screening 1956 Depression Screening 1956 FIT DNA/Cologuard 1956 FIT 1956 FOBT 1956 Sigmoidoscopy 1956 Alcohol/Substance Use Screening 1968 Tobacco Screening 1968 COVID-19 Vaccine ( season) 2024 02/28/2021, 06/15/2020, 05/24/2020 Influenza Vaccine (#1) 2024 , 12/22/2021, 12/29/2020, Additional history exists DTaP/Tdap/Td Vaccines (2 - Td or Tdap) 02/02/2026 02/03/2016 Mammogram 04/03/2026 04/03/2024 RSV Patients and Patients Aged 60 years or older (1 - 1-dose 75+ series) 10/13/2031 Zoster Vaccines Completed 02/03/2020, 09/2019, 12/04/2016 Pneumococcal Vaccine: 50+ Years Completed 06/01/2022 HIB Vaccines Aged Out No longer eligi [...] patient's age to complete this topic Meningococcal Vaccine Aged Out No catalina justin eligible based on patient's age to complete this topic RSV under 20 months Aged Out No longe r eligible based on patient's age to complete this topic Rotavirus Vaccines Aged Out No longer eligible based on patient's age to complete this topic
--- OUTSIDE RECORDS SUMMARY | 2024-11-04 16:55 | XMS_ITS | Clinical Summary ---
Author Organization [address] [facility] Address [address] [place] [address] Phone Care Team Providers Care Educational Guidance Counselor Name Role Phone Meryl Baeza MD Primary Care Provider [phone] Allergies Active Allergy Reactions Criticality Noted Date [...] day. 90 each 5 12/03/19 25 Active SUMAtriptan (IMITREX) 50 mg tablet TAKE 1 TABLET BY MOUTH AT ONSET OF HEADACHE. IF NO RELIEF MAY REPEAT AFTER LEAST 2 HRS. 5 Active fluconazole (DIFLUCAN) 150 mg tablet 1 tablet, rpt dose in 72 hours if still symptomatic 2 tablet 5 Active naproxen (NAPROSYN) 500 mg tablet Take 1 tablet (500 mg total) by mouth 2 (two) times a day with meals for 7 days. 14 each 5 10/08/19 25 trimethoprim-po lymyxin b (POLYTRIM) ophthalmic solution Administer 1 drop into the right eye 4 (four) times a day for 7 days. 3 mL 5 10/17/19 25 clindamycin (CLEOCIN) 150 mg capsule Take 3 capsules (450 mg total) by mouth 3 (three) times a day for 10 days. 90 each 5 10/20/19 25 Hospital, Clinic, or Other Facility Administered Medication Ordered Dose Route Frequency Start Date End Date Status lidocaine (PF) (XYLOCAINE-MPF) 1 % injection 0.5 mLIndications:Disord er of ligament of ankle, left .5 mL inj Once PRN Procedure 10/29/2024 10/29/2024 Ended triamcinolone acetonide (KENALOG-40) 40 mg/mL injection 40 mgIndications:Disord er of ligament of ankle, left 40 mg IAtc Once PRN Procedure 10/29/2024 10/29/2024 Ended Active Problems Problem Noted Date Diagnosed Date Gastroesophageal reflux disease without esophagi tis 10/09/2023 Hypothyroidism 01/25/2022 Assessment & Plan (05/07/2024 8:22 AM EDT): Orders: CBC and differential; Future Thyroid stimulating hormone with reflex to free t4 and free t3; Future Colon polyp 03/22/2021 Overview (12/13/2023): Per [facility] colonoscopy note Hyperlipidemia 08/04/2018 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 Seasonal allergies 08/04/2018 Varicose veins with pain 07/07/2018 Encounters Date Type Department Care Team Description 10/29/2024 10:00 AM EDT Office Visit Orthopedic [facility] [place] [address] [place] [phone] Renny Cordon, DPBro Chronic pain of left ankle (Primary Dx); Venous insufficiency; Sinus tarsi syndrome of left ankle; Disorder of ligament of ankle, left 10/09/2024 8:55 PM EDT - 10/09/2024 11:27 PM EDT Emergency Emergency [address] [place] [phone] Hordeolum externum of right lower eyelid (Primary Dx); Periorbital cellulitis of right eye Discharge Disposition: Home or Self Care 10/05/2024 1:00 PM EDT Office Visit Adult Medicine [address] [phone] Ml Diaz PA Calcific tendinitis of left shoulder (Primary Dx) 10/02/2024 Telephone Adult Medicine [address] [phone] Meryl Baeza MD 09/30/2024 11:52 AM EDT - 09/30/2024 1:33 PM EDT Emergency Emergency [address] [place] [phone] Vivian Vinson MD Calcific tendinitis of left shoulder (Primary Dx); Injury of left shoulder, initial encounter Discharge Disposition: Home or Self Care 09/02/2024 10:30 AM EDT Office Visit Adult Medicine [address] [phone] Ml Diaz PA Hypothyroidism, unspecified type (Primary Dx); Gastroesophageal reflux disease without esophagitis; Varicose veins with pain from Last 3 Months Immunizations Name Administration [...] Date Site/Laterality Comments BREAST REDUCTION 05/2010 PROCEDURE: GA BREAST REDUCTION OTHER SURGICAL HISTORY 12/27/2016 Left PROCEDURE: GA STAB PHLEBT VARICOSE VEINS 1 XTR > [...] care for your loved ones. For example, childcare aide or elderly care for an older adult? [...] 2 2 Date Outcome GA Total Labor Labor//3rd Weight Sex Type Anes PTL Nelida A1 A5 Name Clin Term Term Last Filed Vital Signs Vital Sign Reading Time Taken Comments Blood Pressure 126/83 10/09/2024 11:01 PM EDT Pulse 81 10/09/2024 11:01 PM EDT Temperature 36.6 C (97.9 F) 10/09/2024 11:01 PM EDT Respiratory Rate 18 10/09/2024 11:01 PM EDT Oxygen Saturation 100% 10/09/2024 11:01 PM EDT Inhaled Oxygen Concentration - - Weight 81.6 kg (180 lb) 10/09/2024 8:58 PM EDT Height 170.2 cm (5' 7 ) 10/09/2024 8:58 PM EDT Body Mass Index 28.19 10/09/2024 8:58 PM EDT Plan of Treatment Upcoming Encounters Date Type Department Care Team (Late st Contact Info) Description 11/26/2024 9:30 AM EDT Consult Orthopedic Surgery - [place] 160 [address] [facility] [address] [place] [phone] Stefani Lugo MD 175 [facility] [address] [place] [address] 11/26/2024 11:30 AM EDT Procedure visit Vascular Surgery [facility] [address] [place] [phone] Davey Perez MD [address] [place] [phone] 12/14/2024 1:00 PM EDT Office Visit Vascular Surgery [facility] 300 [facility] 210 [place] [phone] Kayla Ty PA 300 [facility] 210 [place] [address] 01/05/2025 8:45 AM EST Office Visit Adult Medicine [facility] [address] [place], [place] [phone] Meryl Baeza MD [address] [place], [place] 04/06/2025 10:00 AM EST Office Visit Orthopedic Surgery [facility] 250 [address] [facility] 250 [place] [phone] Renny Cordon, DPM [address] [phone] Health Maintenance Due Date Last Done Comments [...] 50+ Years Completed 06/01/2022 Depression Screening Completed 10/05/2024, 04/08/19 24 HIB Vaccines Aged Out No [...] Procedure Name Priority Date/Time Associated Diagnosis Comments INJECTION TENDON OR LIGAMENT Routine 10/29/2024 10:00 AM EDT Disorder of ligament of ankle, left XR ELBOW 3+ VIEWS LEFT STAT 12:50 PM EDT XR HUMERUS 2+ VIEWS LEFT STAT 09/30/2024 12:50 PM EDT XR SHOULDER 2+ VIEWS LEFT STAT 09/30/2024 12:49 PM EDT TRIIODOTHYRONINE FREE Routine 09/02/2024 10:59 AM EDT [...] Recently Relevant to Health Maintenance Results * Injection tendon or ligament (10/29/2024 10:00 AM EDT) Narrative Renny Cordon DPM - 10/29/2024 10:00 AM EDT Renny Cordon DPM 10/29/2024 12:23 PM Injection tendon or ligament Indications: pain Details: 25 G needle Medications: 0.5 mL lidocaine (PF) 1 %; 40 mg triamcinolone acetonide 40 mg/mL Informed Consent: Laterality: Left us Renny Cordon DPM IN CLINIC/BEDSIDE ORDERABLE S Final Result * XR Elbow 3+ Views Left (09/30/2024 12:50 PM EDT) Anatomical Region Laterality Modality Upper Extremities, Elbow Left Radiogr aphic Imaging 09/30/2024 1:06 PM EDT Impressions 09/30/2024 1:06 PM EDT Impression: Normal left elbow. Telerad PAIGE ([id number]) -------- FINAL REPORT -------- Dictated By: Jacey Quintana Dictated Date: 09/30/2024 13:06 ET Assigned Physician: Jacey Quintana Reviewed and Electronically Signed By: Jacey Quintana Signed Date: 09/30/2024 13:06 ET Workstation ID: [id number] Transcribed By: Self Edit Transcribed Date: 09/30/2024 13:06 ET Narrative 09/30/2024 1:06 PM EDT History: Left elbow pain since heavy lifting. Findings: AP, oblique and lateral views of the elbow demonstrate no evidence of fracture, dislocation, or other significant osseous abnormality. The articular spaces are well-maintained. No evidence of a joint effusion is seen. The soft tissues are unremarkable. Procedure Note Jacey Quintana MD - 09/30/2024 History: Left elbow pain since heavy lifting. Findings: AP, oblique and lateral views of the elbow demonstrate no evidence offracture, dislocation, or other significant osseous abnormality. Thearticular spaces are well-maintained. No evidence of a joint effusion isseen. The soft tissues are unremarkable. IMPRESSION: Impression: Normal left elbow. Telerad PA ([id number]) -------- FINAL REPORT -------- Dictated By: Jacey Quintana Dictated Date: 09/30/2024 13:06 ET Assigned Physician: Jacey Quintana Reviewed and Electronically Signed By: Jacey Quintana Signed Date: 09/30/2024 13:06 ET Workstation ID: [id number] Transcribed By: Self Edit Transcribed Date: 09/30/2024 13:06 ET Vivian Vinson MD IMG XR PROCEDURES Final Result * XR Humerus 2+ Views Left (09/30/2024 12:50 PM EDT) Anatomical Region Laterality Modality Upper Extremities, Humerus Left Radio graphic Imaging 09/30/2024 1:05 PM EDT Impressions 09/30/2024 1:06 PM EDT Impression: No evidence of fracture. Telerad PA ([id number]) -------- FINAL REPORT -------- Dictated By: Jacey Quintana Dictated Date: 09/30/2024 13:05 ET Assigned Physician: Jacey Quintana Reviewed and Electronically Signed By: Jacey Quintana Signed Date: 09/30/2024 13:06 ET Workstation ID: [id number] Transcribed By: Self Edit Transcribed Date: 09/30/2024 13:05 ET Narrative 09/30/2024 1:06 PM EDT History: Left arm pain after heavy lifting. Findings: AP and lateral views of the left humerus. No fracture or osseous destructive lesion is seen. The elbow is intact. Procedure Note Jacey Quintana MD - 09/30/2024 History: Left arm pain after heavy lifting. Findings: AP and lateral views of the left humerus. No fracture or osseousdestructive lesion is seen. The elbow is intact. IMPRESSION: Impression: No evidence of fracture. Telerad PAIGE ([id number]) -------- FINAL REPORT -------- Dictated By: Jacey Quintana Dictated Date: 09/30/2024 13:05 ET Assigned Physician: Jacey Quintana Reviewed and Electronically Signed By: Jacey Quintana Signed Date: 09/30/2024 13:06 ET Workstation ID: [id number] Transcribed By: Self Edit Transcribed Date: 09/30/2024 13:05 ET Vivian Vinson MD IMG XR PROCEDURES Final Result * XR Shoulder 2+ Views Left (09/30/2024 12:49 PM EDT) Anatomical Region Laterality Modality Upper Extremities, Shoulder Left Radi ographic Imaging 09/30/2024 1:04 PM EDT Impressions 09/30/2024 1:05 PM EDT Impression: Calcific tendinitis. Telerad PA ([id number]) -------- FINAL REPORT -------- Dictated By: Jacey Quintana Dictated Date: 09/30/2024 13:04 ET Assigned Physician: Jacey Quintana Reviewed and Electronically Signed By: Jacey Quintana Signed Date: 09/30/2024 13:05 ET Workstation ID: [id number] Transcribed By: Self Edit Transcribed Date: 09/30/2024 13:04 ET Narrative 09/30/2024 1:05 PM EDT History: Left shoulder pain since lifting heavy object several days ago. Findings: 3 views of the left shoulder. The glenohumeral and acromioclavicular joints are well-maintained. No fracture or dislocation is seen. A small cluster of amorphous calcifications is seen within the soft tissues adjacent to the greater tuberosity, consistent with calcific tendinitis. Procedure Note Jacey Quintana MD - 09/30/2024 History: Left shoulder pain since lifting heavy object several days ago. Findings: 3 views of the left shoulder. The glenohumeral and acromioclavicularjoints are well-maintained. No fracture or dislocation is seen. A small cluster of amorphous calcifications is seen within the softtissues adjacent to the greater tuberosity, consistent with calcifictendinitis. IMPRESSION: Impression: Calcific tendinitis. Telerad PAIGE ([id number]) -------- FINAL REPORT -------- Dictated By: Jacey Quintana Dictated Date: 09/30/2024 13:04 ET Assigned Physician: Jacey Quintana Reviewed and Electronically Signed By: Jacey Quintana Signed Date: 09/30/2024 13:05 ET Workstation ID: [id number] Transcribed By: Self Edit Transcribed Date: 09/30/2024 13:04 ET us Vivian Vinson MD IMG XR PROCEDURES Final Result * (ABNORMAL) Thyroid stimulating hormone with reflex to free t4 and free t3 (09/02/2024 10:59 AM EDT) TSH 0.26(L) 0.40 - 4.00 mcIU/mL LAB CHEMISTRY METHOD 09/02/2024 3:13 PM EDT [facility] Blood Venous blood specimen / Unknown Venipuncture / Unknown 09/02/2024 10:59 AM EDT 09/02/2024 10:59 AM EDT us Meryl Baeza MD LAB BLOOD ORDERABLES Final Resul t Performing Organization Address [facility]/ZIP Co de Phone Number [facility] [address] [place] [address], [place] [phone] * Free thyroxine with reflex to free triiodothyronine (09/02/2024 10:59 AM EDT) Free T4 1.69 0.70 - 1.80 ng/dL LAB CHEMISTRY METHOD 09/02/2024 7:27 PM EDT [facility] Blood Venous blood specimen / Unknown Venipuncture / Unknown 09/02/2024 10:59 AM EDT 09/02/2024 10:59 AM EDT us Meryl Baeza MD LAB BLOOD ORDERABLES Final Resul t Performing Organization Address [facility] de Phone Number [facility] [address] [place] [address], [place] [phone] * Triiodothyronine free (09/02/2024 10:59 AM EDT) T3, Free 328 230 - 420 pcg/dL LAB CHEMISTRY METHOD 09/02/2024 9:51 PM EDT [facility] Blood Venous blood specimen / Unknown Venipuncture / Unknown 09/02/2024 10:59 AM EDT 09/02/2024 10:59 AM EDT us Meryl Baeza MD LAB BLOOD ORDERABLES Final Resul t Performing Organization Address [facility] Co de Phone Number [facility] [address] [place] [address], [place] [phone] * BD Bone Density DXA Axial Skeleton [...] Signed Date: 05/13/2024 20:01 ET Workstation ID: [id number] Transcribed By: Self Edit Transcribed Date: 05/13/2024 19:59 ET Narrative 05/13/2024 8:01 PM EDT Clinical history: Screening for osteoporisis Scans of the lumbar spine and hips were performed on a [employer] fan beam bone densitometer. Bone mineral density [...] spine and hips were performed on a [employer] Systems [employer]fan beam bone densitometer. Bone mineral density measurements [...] Signed Date: 05/13/2024 20:01 ET Workstation ID: [id number] Transcribed By: Self Edit Transcribed Date: 05/13/2024 19:59 ET us Meryl Baeza MD IM DXA PROCEDURES Final Result * (ABNORMAL) Lipid panel with reflex to direct LDL (05/07/2024 8:29 AM EDT) Cholesterol 243(H) 0 - 200 mg/dL LAB CHEMISTRY METHOD 05/07/2024 10:43 AM EDT [facility] Triglycerides 91 0 - 150 mg/dL LAB CHEMISTRY METHOD 05/07/2024 10:43 AM EDT [facility] HDL 75 >=40 mg/dL LAB CHEMISTRY METHOD 05/07/2024 10:43 AM EDT [facility] LDL Calculated 150(H) 0 - 100 mg/dL LAB CHEMISTRY METHOD 05/07/2024 10:43 AM EDT [facility] VLDL Cholesterol Sam 18.2 mg/dL LAB CHEMISTRY METHOD 05/07/2024 10:43 AM EDT [facility] Non HDL Chol. (LDL+VLDL) 168(H) <145 mg/dL LAB CHEMISTRY METHOD 05/07/2024 10:43 AM EDT [facility] Chol/HDL Ratio 3.2 0.0 - 4.4 LAB CHEMISTRY METHOD 05/07/2024 10:43 AM EDT [facility] Blood Venous blood specimen / Unknown Venipuncture / Unknown 05/07/2024 8:29 AM EDT 05/07/2024 8:29 AM EDT us Meryl Baeza MD LAB BLOOD ORDERABLES Final Resul t [facility] [address] [place] [address], * MG Mammo Digital Screening w Abdi bilat (04/03/2024 9:57 AM EST) Anatomical Region Laterality Modality Breast Bilateral Mammography 04/03/2024 3:26 PM EST Impressions 04/03/2024 3:30 PM EST No mammographic evidence of malignancy. BI-RADS CATEGORY: 2 - BENIGN RECOMMENDATION: Screening bilateral mammogram is recommended in 1 year. Mammo Location: [facility], [address] [place] [address], [id number], . -------- FINAL REPORT -------- Dictated By: Addis Medeiros Dictated Date: 04/03/2024 15:26 ET Assigned Physician: Addis Medeiros Reviewed and Electronically Signed By: Addis Medeiros Signed Date: 04/03/2024 15:30 ET Workstation ID: [id number] Transcribed By: Self Edit Transcribed Date: 04/03/2024 [...] is recommended in 1 year. Mammo Location: [facility], [address] [place] [address], [phone], . -------- FINAL REPORT -------- Dictated By: Addis Medeiros Dictated Date: 04/03/2024 15:26 ET Assigned Physician: Addis Medeiros Reviewed and Electronically Signed By: Addis Medeiros Signed Date: 04/03/2024 15:30 ET Workstation ID: [id number] Transcribed By: Self Edit Transcribed Date: 04/03/2024 15:26 ET Meryl Baeza MD IMG BI PROCEDURES Final Result * Depression Screening (04/08/2023) Depression Screening abstracted [facility] Provider HEALTH MAINTENANCE Final Result * Colonoscopy (03/22/2021) Colonoscopy no interpretation , abstracted Anatomical Region Laterality Modality Other Historical Provider HEALTH MAINTENANCE Final Result * Hepatitis C Screening (10/31/2007) Pathologist [facility] Hepatitis C Screening abstracted Historical Provider HEALTH MAINTENANCE Final Result from Last 3 Months or Most Recently Relevant to Health Maintenance Insurance [employer] Advance Directives Documents on File Type Date 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
--- OUTSIDE RECORDS SUMMARY | 2024-11-04 16:55 | XMS_ITS | Encounter Summary ---
Author Organization [employer] Address [address] [facility] [address] [place] [address] Care Team Providers Care Associate Account Executive Name Role Phone Harrison Portillo MD Primary Care Prov ider Encounter Details Date Type Department Care Team (Latest Contact Info) Description 12/31/2019 Abstract [facility] CONVERSIONS Dental, Provider, DDS Social [...] on filedocumented in this encounter Care Teams Associate Account Executive Relationship Specialty Start Date End Date Harrison Portillo MD [address] [place] [address] PCP - General Internal Medicine 07/17/19 12/19/23 documented as of this encounter
--- OUTSIDE RECORDS SUMMARY | 2024-11-04 16:55 | XMS_ITS ---
Author Name [facility] Organization Unknown Care Team Organization Name Specialty Phone Email Start Date End Da te [facility] 10/14/2024 [facility] Meryl Baeza Primary Care 07/02/2022 024
== END 2024-11-04 13:51 | disposition home or self-care (01) ==
LOC: HO.US 13:50
PROVIDERS: PCP Internal Medicine; Visit Provider Student in an Organized Health Care Education/Training Program
DX: I82.401 Acute embolism and thrombosis of unspecified deep veins of right lower extremity (principal)
CPT/HCPCS: 93971

== ENCOUNTER → 2024-11-04 13:53 | Outpatient (BNV) | payer MEDICARE, SELFPAY | PROVIDERS: PCP Internal Medicine; Visit Provider Radiology Diagnostic Radiology | DX: I83.811 Varicose veins of right lower extremity with pain (principal) | CPT/HCPCS: 93971 ==